=== PATIENT | male | born 1945 | race Caucasian/White ===

== ENCOUNTER 2022-10-26 14:26 | Outpatient (CLI) | payer MEDICARE, SELFPAY ==
--- NOTE | ~2022-10-26 | CT_ITS ---
EXAMINATION: CT LE LT wo con DATE: 10/26/2022 14:57 INDICATION: Left knee osteoarthritis for preoperative planning TECHNIQUE: High resolution computed tomography (CT) of the left knee was performed without intravenou s contrast utilizing Conformis protocol. Additional sagittal and coronal reconstructions were perform ed. Automated exposure control and iterative reconstruction technique were employed. The dose-length product was 1710.23 mGy-cm. COMPARISON: None FINDINGS: Mild osteoarthritis at the left hip. Small amount of enthesopathic consultation at the insertion the posterior left gluteus medius medius tendon. Multiple diverticula lung sigmoid colon without adjacent inflammatory changes suggest diverticulitis. No pathologically enlarged left pelvic or inguinal lymp hadenopathy. Small fat-containing left inguinal hernia. Tricompartmental osteoarthritis with marginal osteophytes all 3 compartments of the knee. There is mi ld joint space narrowing in the medial and lateral compartments on nonweightbearing imaging. Remodeli ng with increased concavity to the articular surface at the posterior two thirds of the lateral tibia l plateau where there is also underlying subarticular sclerosis and subarticular cystic changes which are also seen along the central to posterior weightbearing lateral femoral condyle. This suggests se valery joint space narrowing in the lateral compartment with weightbearing there is chondrocalcinosis i n the medial and lateral compartments likely also involving the menisci. There is calcific debris in the central to posterior aspect of the intercondylar notch. Prominent chronic erosion along the roof of the intercondylar notch with smaller cystlike changes at the intercondylar eminence. Moderate-size d knee joint effusion is present. Moderate to severe polyarticular osteoarthritis with prominent scattered subarticular cystic changes involving multiple joints at the left ankle and hindfoot were . There is additional cystic changes at the lateral malleolus and adjacent nonarticular surface of the lateral calcaneus which can be seen i n the setting of lateral hindfoot impingement. Extensive subcutaneous edema throughout the left calf extending into the foot.. IMPRESSION: 1. Tricompartmental osteoarthritis at the left knee, advanced at the lateral compartment with moderat e-sized joint effusion. 2. Moderate to severe polyarticular osteoarthritis at the left ankle and hindfoot with suggestion of hindfoot valgus and lateral hindfoot impingement. Reviewed, dictated and finalized at location A. IMPRESSION: 1. Tricompartmental osteoarthritis at the left knee, advanced at the lateral co mpartment with moderate-sized joint effusion. 2. Moderate to severe polyarticular osteoarthritis at the left ankle and hindfo ot with suggestion of hindfoot valgus and lateral hindfoot impingement.
== END 2022-10-26 14:27 | disposition home or self-care (01) ==
PROVIDERS: PCP Internal Medicine; Visit Provider Orthopaedic Surgery
DX: M17.12 Unilateral primary osteoarthritis, left knee (principal)
CPT/HCPCS: 73700

== ENCOUNTER 2022-11-11 10:17 | Outpatient (CLI) | payer MEDICARE, SELFPAY ==
[2022-11-11 11:05] LABS: Hematocrit 38.7 % (42.0-52.0); Hemoglobin 12.6 g/dL (14.0-18.0); Mean Corpuscular HGB Conc 32.6 g/dl (32-36); Mean Corpuscular Hemoglobin 31.1 pg (26-34); Mean Corpuscular Volume 95.6 fl (80-100); Platelet Count Result 202 k/mm3 (150-375); Red Blood Count 4.05 M/mm3 (4.6-6.20); Red Cell Distribution Width 12.1 % (11.5-14.5); White Blood Count 5.5 K/mm3 (4.5-10.0)
[2022-11-11 11:06] LABS: Appearance Urine Clear (Clear); Bilirubin Urine Negative (Negative); Blood Urine Negative (Negative); Color Urine Yellow (Yellow); Glucose Urine UA Negative (Negative); Ketones Urine Negative (Negative); Leukocyte Esterase Ur Negative LEU/UL (Negative); Nitrate Urine Negative (Negative); Protein Urine Negative (Negative); Specific Grav Ur 1.012 (1.001-1.035); Urobilinogen Urine 0.2 mg/dL (<2.0)
[2022-11-11 11:15] LABS: Add Urine Microscopic? NO
[2022-11-11 11:16] LABS: Anion Gap 4 mmol/L (8-16); Blood Urea Nitrogen 35 mg/dL (9-20); Carbon Dioxide 35 mmol/L (22-30); Chloride 99 mmol/L (98-107); Estimated Glomerular Filt Rate 46; Glucose 94 mg/dL (65-110); Potassium 4.7 mmol/L (3.4-5.0); Sodium 138 mmol/L (137-145)
[2022-11-11 11:29] LABS: Prothrombin Time 13.2 Seconds (11.1-14.7)
[2022-11-11 11:30] LABS: Partial Thromboplastin Time 34.7 SECONDS (22.3-36.8)
== END 2022-11-11 10:18 | disposition home or self-care (01) ==
LOC: ANHSURGERY 10:22
PROVIDERS: PCP Internal Medicine; Visit Provider Neurological Surgery
DX: M54.9 Dorsalgia, unspecified (principal); G89.29 Other chronic pain; Z01.818 Encounter for other preprocedural examination
CPT/HCPCS: 36415; 80048; 81003; 85027; 85610; 85730

== ENCOUNTER 2022-11-17 02:42 | Day surgery (SDC) | payer MEDICARE, SELFPAY ==
--- NOTE | 2022-11-07 13:38 | PC.NURSE ---
Report to the Outpatient Waiting Room, entrance under the green pavilion located off [facility], at time _1130 on date __11/17/22 . Planned Procedure Time: __1330 . Time changes happen often and if your time is changed the preop area will call you the afternoon before. - You and your visitor will be asked to self-screen and do not enter if you have any COVID symptoms. - A mask is optional within the hospital at this time. Patients may have clear liquids (water, carbonated beverages, clear teas, apple juice) until 3 hours prior to surgery with a maximum of 20 ounces. - No food from midnight until time of surgery - Infants may have breast milk until 4 hours before surgery, formula 6 hours prior to surgery. - Children will be allowed to drink immediately following surgery. If applicable, please bring a bottle or sippy cup to assist with drinking. Juice, water, soda, and popsicles are readily available. For infants on formula, please bring formula the day of surgery. Pacifiers are allowed. Take the following medications with a SIP of water the morning of surgery: ___BREO INHALER,GABAPENTIN,OXYCODONE IF NEEDED FOR PAIN DO NOT STOP ANY OF YOUR OTHER PRESCRIPTION MEDICATIONS PRIOR TO SURGERY ?EXCEPT THE FOLLOWING Medications to discontinue per physician ___ALL VITMAINS/SUPPLEMENTS 3 DAYS PRE OP LAST DOSE 11/13/22 Please no make-up, nail georgian, hairspray, perfume, deodorant, or body powder the day of surgery. No jewelry (including any body piercings) or valuables the day of surgery, leave them at home. Please take a shower or bath the night before, or the morning of, surgery with an antibacterial soap. Wear comfortable, loose fitting clothing. Children are encouraged to wear pajamas. - Jewelry must be removed prior to entering the operating room. Rings and piercings that are not removed may be cut off. - The hospital will not accept responsibility for valuables. - Please leave all valuables, including medications, at home the day of surgery. If you are going home after surgery, a licensed flag car driver must drive you home. - NO public transportation without another adult if you receive anesthesia. - We recommend that an adult stay with you for 24 hours following discharge. - We also recommend that you do not drive, make important decision, drink alcoholic beverages, or take any drugs that were not prescribed by your health care provider for at least 24 hours after your discharge time. For Pediatric surgeries, we recommend two adults accompany the child home. Follow any additional instructions given to you from your surgeon. If you or anyone in your household have experienced Covid symptoms in the past week, please notify your surgeon or the nurse liaison at the phone number below for possible testing. Telephone instructions given to __PATIENT and asked if any additional questions and then verbalized understanding. Patient advised to call surgeon office or pre surgery nurse liaison [phone] if any additional questions.
[2022-11-07 13:52] VITALS: BMI 34.2
[2022-11-17] VITALS (7 sets, daily range): BP systolic 102–125; BP diastolic 56–68; PULSE 60–71; RESP 13–18; TEMP 36.1–36.7; O2SAT 92–100; BMI 34.2
[2022-11-17] MEDS: LACTATED RINGERS 1,000 ML 30 ML IV CONT (06:30)
--- NOTE | 2022-11-17 06:42 | WPDANESEPPF ---
Anes - Initial Pre Proc Eval Procedure: Operation Date: 11/17/22 08:00 Proposed Procedures p Revision Dorsal Column Stimulator, Possible Lead Revision - Marlon Garnica MD Date/Time: 11/17/22 06:42 Surgeon: Marlon Garnica MD Pre Op Diagnosis: chronic back and leg pain Patient Data Age: 76 Gender: M Height: 1.73 m Weight: 102.1 kg Allergies Allergy/AdvReac Type Severity Reaction Status Date / Time adhesive tape Allergy Mild BLISTERS Verified 11/07/22 13:18 Home Medications Medication Instructions Recorded Confirmed Type amlodipine 5 mg tablet 5 mg PO DAILY 09/19/22 11/07/22 History darkafk-mqkzmvfztiojn-uoejhxlh 250 1 tablet PO Q4-6H PRN Pain 09/19/22 11/07/22 History mg-250 mg-65 mg tablet (Excedrin Extra Strength) celecoxib 200 mg capsule 200 mg PO DAILY 09/19/22 11/07/22 History cholecalciferol (vitamin D3) 10 800 unit PO DAILY 09/19/22 11/07/22 History mcg (400 unit) tablet (Vitamin D3) furosemide 20 mg tablet 20 mg PO QAM 09/19/22 11/07/22 History gabapentin 300 mg capsule 900 mg PO TID 09/19/22 11/07/22 History omeprazole 20 mg capsule,delayed 20 mg PO DAILY 09/19/22 11/07/22 History release oxycodone 10 mg tablet 10 mg PO Q8H PRN Pain 09/19/22 11/07/22 History rosuvastatin 10 mg tablet 10 mg PO DAILY 09/19/22 11/07/22 History valsartan 320 mg tablet 320 mg PO DAILY 09/19/22 11/07/22 History vit C 250 mg-vit E 90 mg-zinc 40 1 tablet PO BID 09/19/22 11/07/22 History mg-copper 1 vz-cnhaio-uxgyrd capsule fluticasone furoate 100 1 inh inhalation DAILY 11/07/22 11/07/22 History mcg-vilanterol 25 mcg/dose inhalation powder (Breo Ellipta) Patient hx anesthesia problems: none Family hx anesthesia problems: none Results Review: All pre-operative results and documents have been reviewed as part of the pre-operative evaluation. [facility] Past Medical History Medical History Acute pain of left shoulder Aftercare following joint replacement surgery Body mass index [BMI] 33.0-33.9, adult (12/08/17) Encounter for other specified surgical aftercare (10/26/15) Enlarged prostate (~2002) Pain of right patella Primary osteoarthritis of left knee Primary osteoarthritis of right shoulder Rheumatoid arthritis Rotator cuff tear arthropathy of left shoulder Trochanteric bursitis, left hip Surgical History Surgical History H/O neck surgery (~2010) H/O repair of left rotator cuff (~2007) History of bladder surgery History of colonoscopy History of laminectomy (~1992) History of spinal fusion (~04/20/18) S/P placement of nerve stimulator Status post total right knee replacement Family History Family History Other Family history of cardiovascular disease Family history of emphysema Family history of malignant neoplasm Social History Social History Smoking status: Never smoker Alcohol intake: never Lack of Transportation: No Lack of Food: Never True Current Housing: I Have Housing Concerned About Future Housing: No Difficulty Paying Gas/Electric Bills: No Difficulty Paying for Meds: No Currently Unemployed: No Education: High School Diploma/GED Difficulty w/ Childcare or Family Care: No Living arrangements: with family Spiritual care concerns: No Anes - Eval Final PreProcedure Day of Procedure 11/17/22 06:42 Patient weight: obese Heart: regular rate and rhythm Lungs: clear to auscultation Airway: Mallampati scale class III and special considerations poor extension (no extension - fused) Neurological: alert and oriented Last oral intake: >/= 8 hours ASA classification: III Emergent: no Anesthetic plan: proceed Anesthesia type and monitoring: general ETT and standard monitoring Results Review: All pre-operative results an
--- NOTE | 2022-11-17 07:56 | PM.IMHP ---
H&P: HPI History of Present Illness Date/Time: 11/17/22 07:56 Chief Complaint: Back and leg pain Narrative: Italo is a 76-year-old male with back and leg pain that responded dorsal column stimulation who has a battery that requires replacement. The status of the leads is unknown and may also need to be replaced. He has not changed appreciably since we last saw him. He does not have specific muscle group weakness or dermatomal numbness. He is not having bowel or bladder difficulty. Review of Systems Review of Systems: Patient denies shortness of breath, cough, fever, chills, nausea, vomiting, weight loss, waking, chest pain, dysuria. He has back and leg pain as above. His review of systems is otherwise negative on 12 systems except as noted elsewhere. [facility] Past Medical History Medical History Acute pain of left shoulder Aftercare following joint replacement surgery Body mass index [BMI] 33.0-33.9, adult (12/08/17) Encounter for other specified surgical aftercare (10/26/15) Enlarged prostate (~2002) Pain of right patella Primary osteoarthritis of left knee Primary osteoarthritis of right shoulder Rheumatoid arthritis Rotator cuff tear arthropathy of left shoulder Trochanteric bursitis, left hip Surgical History Surgical History H/O neck surgery (~2010) H/O repair of left rotator cuff (~2007) History of bladder surgery History of colonoscopy History of laminectomy (~1992) History of spinal fusion (~04/20/18) S/P placement of nerve stimulator Status post total right knee replacement Family History Family History Other Family history of cardiovascular disease Family history of emphysema Family history of malignant neoplasm Social History Social History Smoking status: Never smoker Alcohol intake: never Lack of Transportation: No Lack of Food: Never True Current Housing: I Have Housing Concerned About Future Housing: No Difficulty Paying Gas/Electric Bills: No Difficulty Paying for Meds: No Currently Unemployed: No Education: High School Diploma/GED Difficulty w/ Childcare or Family Care: No Living arrangements: with family Spiritual care concerns: No Meds Home Medications and Allergies Home Medications Medication Instructions Recorded Confirmed Type amlodipine 5 mg tablet 5 mg PO DAILY 09/19/22 11/17/22 History mudxnel-lgieegfmgmuyl-ajnochoc 250 1 tablet PO Q4-6H PRN Pain 09/19/22 11/17/22 History mg-250 mg-65 mg tablet (Excedrin Extra Strength) celecoxib 200 mg capsule 200 mg PO DAILY 09/19/22 11/17/22 History cholecalciferol (vitamin D3) 10 800 unit PO DAILY 09/19/22 11/17/22 History mcg (400 unit) tablet (Vitamin D3) furosemide 20 mg tablet 20 mg PO QAM 09/19/22 11/17/22 History gabapentin 300 mg capsule 900 mg PO TID 09/19/22 11/17/22 History omeprazole 20 mg capsule,delayed 20 mg PO DAILY 09/19/22 11/17/22 History release oxycodone 10 mg tablet 10 mg PO Q8H PRN Pain 09/19/22 11/17/22 History rosuvastatin 10 mg tablet 10 mg PO DAILY 09/19/22 11/17/22 History valsartan 320 mg tablet 320 mg PO DAILY 09/19/22 11/17/22 History vit C 250 mg-vit E 90 mg-zinc 40 1 tablet PO BID 09/19/22 11/17/22 History mg-copper 1 qg-cjywef-ihjupb capsule fluticasone furoate 100 1 inh inhalation DAILY 11/07/22 11/17/22 History mcg-vilanterol 25 mcg/dose inhalation powder (Breo Ellipta) Allergies Allergy/AdvReac Type Severity Reaction Status Date / Time adhesive tape Allergy Mild BLISTERS Verified 11/17/22 07:23 Vital Signs Vital Signs - 24 hr 11/17/22 06:00 Temperature 98.1 F Pulse Rate 71 Respiratory Rate 16 Blood Pressure 125/68 Pulse Oximetry 95 Oxygen Delivery Room Air Exam Narrative: Strength is 5/5 in all mu
--- NOTE | 2022-11-17 07:58 | WPDHPUPDATE1 ---
History and Physical Update Update Date/Time: 11/17/22 07:58 History and Physical has been reviewed, including an updated exam of the patient. There are NO changes in the patient's condition. Risks, benefits, and alternatives have been discussed and questions answered. Patient agrees to proceed with procedure.
[2022-11-17] MEDS: ceFAZolin 2 GM/D5W 50 ML 2 GM/50 ML BAG IVPB (08:04)
[2022-11-17] MEDS: VANCOMYCIN HCL 1,000 MG VIAL 1000 MG TOPICAL (08:32)
[2022-11-17] MEDS: LIDO 1%/EPINEPHRINE 1:100,000 20 ML VIAL 10 ML INFILTRATE (08:32)
--- NOTE | 2022-11-17 08:57 | W.PM.PROC2 ---
Procedure Note - Detailed Date of Procedure 11/17/22 Pre-op Diagnosis chronic back and leg pain Post-op Diagnosis Same Procedure Performed Removal and replacement of dorsal column stimulator generator Surgeon Marlon Garnica MD Anesthesia General Description of Procedure Patient was brought to the operating room in the supine position, was sedated, intubated placed under general anesthesia in routine fashion. He was then turned into the prone position on a Antolin frame. The area of operation on his back was examined, marked for incision, prepped and draped in routine sterile fashion. Incision was marked over the previous incision in the right flank. This area was injected with 0.5% lidocaine with [id number] epinephrine. Intravenous antibiotics given prior to incision. Incision was made with a 10 blade scalpel. Bovie cautery was used to come to the soft tissues to discovered removed the generator from the pocket using clamp. The small screwdriver was used to loosen the wires from the housing. The generator was removed and passed off the field. New generator was brought up and the wires were placed into the same slots on the generator and secured in position using the small screwdriver. Repeats testing was carried out to confirm good connectivity which was confirmed. The wound was copiously irrigated with bacitracin irrigation all bleeding stopped bipolar cautery. The generator was then placed in the pocket with excess wire coiled up underneath and with vancomycin impregnated pellets around the device. The wound was then closed with 3-0 Vicryl interrupted sutures in the dermis and a running 4-0 Monocryl subcuticular stitch in the skin was dressed with Dermabond. The patient was loud wake up in the operating room was taken to recovery room in stable condition. There were no immediate complications of this operation. All counts were reported correct in the case. Blood loss was 1 cc. The patient was neurologically at his baseline postoperatively. Estimated Blood Loss 1 IV Fluids 500 Complications None Condition Stable Disposition PACU [facility] Billing Surgery - Charge Forward: Surgery Billing
== END 2022-11-17 10:40 | disposition home or self-care (01) ==
PROVIDERS: PCP Internal Medicine; Visit Provider Neurological Surgery
PROC: (CPT 63685; principal; 2022-11-17 08:00)
DX: Z45.42 Encounter for adjustment and management of neurostimulator (principal); M54.9 Dorsalgia, unspecified; M79.606 Pain in leg, unspecified; G89.29 Other chronic pain; E66.9 Obesity, unspecified; Z68.34 Body mass index [BMI] 34.0-34.9, adult
CPT/HCPCS: 63685; 36415; 80048; 81003; 85027; 85610; 85730; C1787; C1820; J0330; J0690; J1100; J2405; J2704; J3010; J3370; J7120

== ENCOUNTER 2023-02-13 11:22 | Outpatient (CLI) | payer MEDICARE, SELFPAY ==
--- NOTE | 2023-02-13 12:32 | ECG_ITS ---
Measurements Intervals [place] Rate: 54 P: 108 SC: 366 QRS: -16 QRSD: 88 T: 43 QT: 400 QTc: 382 Interpretive Statements SINUS BRADYCARDIA LEFT AXIS DEVIATION ABNORMAL ECG NO PREVIOUS ECG AVAILABLE FOR COMPARISON Electronically Signed On 02-14-2023 11:49:48 CDT by Darvin Brown M.D.
[2023-02-13 12:41] LABS: Estimated Glomerular Filt Rate 54
== END 2023-02-13 11:23 | disposition home or self-care (01) ==
PROVIDERS: PCP Internal Medicine; Visit Provider Orthopaedic Surgery
DX: M17.12 Unilateral primary osteoarthritis, left knee (principal); Z01.818 Encounter for other preprocedural examination
CPT/HCPCS: 36415; 82040; 82565; 93005